=== PATIENT | male | born 1940 | race Caucasian/White ===

== ENCOUNTER 2024-06-24 14:50 | Emergency (ER) | payer MEDICARE, OTHER ==
[~2024-06-24] VITALS: Ht 172.7 cm; Wt 63.0 kg
[2024-06-24 14:50] VITALS: TEMP 98.2
[2024-06-24 15:56] VITALS: BP 120/33; O2SAT 94
== END 2024-06-24 18:13 ==
LOC: ER 14:55
DX: S09.8XXA Other specified injuries of head, initial encounter (principal); I10 Essential (primary) hypertension; K21.9 Gastro-esophageal reflux disease without esophagitis; F32.A Depression, unspecified; G20.A1 Parkinson's disease without dyskinesia, without mention of fluctuations; Z87.448 Personal history of other diseases of urinary system; W18.39XA Other fall on same level, initial encounter; Y93.89 Activity, other specified; Y92.89 Other specified places as the place of occurrence of the external cause; Y99.8 Other external cause status
CPT/HCPCS: 70450-TC